=== PATIENT | female | born 1980 | race Caucasian/White ===

== ENCOUNTER → 2020-08-12 12:50 | Outpatient (CLI) | payer OTHER, SELFPAY ==
[2020-08-12 13:51] LABS: COVID19 -Nasal RAPID Negative (Negative)
== END ==
PROVIDERS: PCP Specialist; Referring Provider Specialist; Visit Provider Specialist
DX: Z20.822 Contact with and (suspected) exposure to COVID-19 (principal)
CPT/HCPCS: 87635; C9803

== ENCOUNTER → 2020-08-12 14:08 | Outpatient (CLI) | payer OTHER, SELFPAY ==
--- NOTE | 2020-08-20 13:26 | PM.PFT.1 ---
Pulmonary Function Test Referral & Results Date Patient Seen: 08/12/20 Requesting provider: Antonette Strickland Results: The spirometry demonstrates an FVC of 3.92 L which is 87% of predicted. The FEV1 was measured at 3.11 L which is 86% of predicted. The FEV1/FVC ratio was 79 which is 96% of predicted. Following the administration of bronchodilator there was a 14% improvement in FEV1 and a 65% improvement in FEF 25-75%. Lung volumes show an SVC of 4.18 L which is 103% of predicted. The diffusing capacity was measured at 33.21 which is 102% of predicted. The maximum voluntary ventilation was normal Interpretation: This study demonstrates probably normal pulmonary function. There is a very minimal reduction FEV1 with a preserved FEV1/FVC ratio but some evidence of minimal benefit following bronchodilator thus suggesting perhaps extremely mild obstructive lung disease. Clinical correlation suggested
== END ==
PROVIDERS: PCP Specialist; Referring Provider Specialist; Visit Provider Specialist
DX: J45.990 Exercise induced bronchospasm (principal); Z20.822 Contact with and (suspected) exposure to COVID-19
CPT/HCPCS: 87635; 94060; 94726; 94729; C9803